=== PATIENT | male | born 1990 | race African-American/Black ===

== ENCOUNTER 2024-04-26 12:18 | Outpatient (CLI) | payer OTHER ==
[2024-04-26 13:02] LABS: #Basophils 0.04 10x3/uL (0.0-0.2); #Eosinophils 0.09 10x3/uL (0.0-0.5); #Monocytes 0.64 10x3/uL (0.0-1.1); #Neutrophils 3.04 10x3/uL (1.5-8.4); %Basophils 0.7 % (0.0-2.0); %Eosinophils 1.6 % (0.0-6.0); %Lymphocytes 32.9 % (18.0-47.0); %Monocytes 11.2 % (0.0-10.0); %Neutrophils 53.4 % (40.0-75.0); Hematocrit 46.9 % (38.8-50.0); Hemoglobin 14.8 g/dL (13.5-17.5); Mean Corpuscular HGB CONC 31.6 g/dL (32.0-36.0); Mean Corpuscular Hemoglobin 26.1 pg (27.0-33.0); Mean Corpuscular Volume 82.6 fL (81.2-95.1); Mean Platelet Volume 10.6 fL (7.4-10.4); Platelet Count 284 10x3/uL (150-450); RBC Distribution Width 12.7 % (11.5-14.5); Red Blood Cell (RBC) Count 5.68 10x6/uL (4.32-5.72); White Blood Cell (WBC) Count 5.69 10x3/uL (3.5-10.5)
[2024-04-26 13:19] LABS: Anion Gap 12 mmol/L (10-20); BUN (Urea Nitrogen) 14 mg/dL (8.9-20.6); Calc. Creatinine Clearance 0 mL/min (70-130); Calcium 9.6 mg/dL (7.8-10.44); Carbon Dioxide 26 mmol/L (22-29); Chloride 105 mmol/L (98-107); Estimated GFR 89; Glucose 96 mg/dL (70-105); Potassium 4.3 mmol/L (3.5-5.1); Sodium 139 mmol/L (136-145)
== END 2024-04-26 12:19 | disposition home or self-care (01) ==
LOC: CSHLAB 12:18
PROVIDERS: ATTEND Specialist
DX: Z01.812 Encounter for preprocedural laboratory examination (principal); K40.20 Bilateral inguinal hernia, without obstruction or gangrene, not specified as recurrent
CPT/HCPCS: 80048; 85025

== ENCOUNTER 2024-05-01 05:44 | Day surgery (SDC) | payer OTHER ==
[2024-04-26 12:42] VITALS: BMI 34.2
[2024-05-01] MEDS ORDERED: Acetaminophen 500 MG TAB ONE (06:31)
[2024-05-01] MEDS ORDERED: Ketorolac Tromethamine 30 MG (1 mL) VIAL ONE (06:31)
[2024-05-01] MEDS ORDERED: PROPOFOL 40 ML ONE (06:38)
[2024-05-01] MEDS ORDERED: Dexamethasone 20 MG/5 ML VIAL ONE (06:39)
[2024-05-01] MEDS ORDERED: Lidocaine 2% PF 5 ML VIAL ONE (06:39)
[2024-05-01] MEDS ORDERED: Ondansetron PF 4 MG/2 ML Vial ONE (06:39)
[2024-05-01] MEDS ORDERED: Rocuronium Bromide 10 MG/ML (10ML VIAL) ONE (06:39)
[2024-05-01] MEDS ORDERED: SUGAMMADEX SODIUM 200 MG/2 ML VIAL ONE ×2 (06:39→09:54)
[2024-05-01] MEDS ORDERED: Bupivacaine/Epinephrine 0.25% 30 ML VIAL ONE (06:45)
[2024-05-01] MEDS ORDERED: Dexmedetomidine 200 MCG/2 ML VIAL ONE (06:45)
[2024-05-01] MEDS ORDERED: fentaNYL 50 mcg/mL 1 mL Vial ONE ×3 (06:47→10:56)
[2024-05-01] MEDS ORDERED: ePHEDrine Sulfate 50 MG/10 ML VIAL ONE (06:49)
[2024-05-01] MEDS ORDERED: Sevoflurane 250 ML INH ANEST BOTTLE ONE (06:53)
[2024-05-01] MEDS ORDERED: CEFAZOLIN 2 GM VIAL ONE (07:22)
[2024-05-01] MEDS ORDERED: SUCCINYLCHOLINE/SOD CL,ISO/PF 200 MG/10 ML SYRINGE FS ONE (07:28)
[2024-05-01] MEDS ORDERED: Glycopyrrolate 0.2 MG/ML 5 ML SYRINGE ONE (07:44)
[2024-05-01] MEDS ORDERED: PHENYLEPHRINE-NS 100 MCG/ML 10 ML SYRINGE ONE (07:50)
[2024-05-01] MEDS ORDERED: HYDROcodone/Acetaminophen 5/325 mg Tablet ONE (11:26)
== END 2024-05-01 11:50 | disposition home or self-care (01) ==
LOC: CSHSDC 05:44
PROVIDERS: ATTEND Specialist
PROC: 0YUA4JZ Supplement Bilateral Inguinal Region with Synthetic Substitute, Percutaneous Endoscopic Approach (ICD-10-PCS; principal; 2024-05-01)
DX: K40.20 Bilateral inguinal hernia, without obstruction or gangrene, not specified as recurrent (principal)
CPT/HCPCS: C1781; J1100; J1885; J2405; J2704; J3010; S2900